=== PATIENT | male | born 2000 | race Hispanic/Latino ===

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

== ENCOUNTER 2023-05-06 14:45 | Outpatient (RCR) | payer BC | END 2023-05-21 | LOC: PT 14:45 | PROVIDERS: ATTEND Specialist | DX: S42.251D Displaced fracture of greater tuberosity of right humerus, subsequent encounter for fracture with routine healing (principal); S14.3XXD Injury of brachial plexus, subsequent encounter; M62.81 Muscle weakness (generalized) ==